=== PATIENT | female | born 1960 | race Two or more races ===

== ENCOUNTER 2024-05-23 11:54 | Inpatient (IN) | payer OTHER ==
[2024-05-23 12:07] VITALS: BMI 20.9
[2024-05-23 14:38] LABS: BASO % 1.1 % (0-2.0); EOS % 2.8 % (0-4.5); HEMATOCRIT 32.3 % (32.4-45.2); HEMOGLOBIN 11.2 GM/dL (10.7-15.3); LYMPH % 20.4 % (8-40); MCH 31.3 pg (25.7-33.7); MCHC 34.6 g/dl (32.0-36.0); MEAN CELL VOLUME 90.5 fl (80-96); MEAN PLT VOLUME 8.5 fl (7.5-11.1); MONO % 4.8 % (3.8-10.2); NEUT % 70.9 % (42.8-82.8); PLATELET COUNT 252 10^3/uL (134-434); RBC 3.57 M/mm3 (3.60-5.2); RDW 12.5 % (11.6-15.6); WHITE BLOOD COUNT 7.6 K/mm3 (4.0-10.0)
[2024-05-23 15:04] LABS: POTASSIUM 4.3 mmol/L (3.5-5.1)
[2024-05-23 15:06] LABS: ALBUMIN 3.7 g/dl (3.4-5.0); BLOOD UREA NITROGEN 25.3 mg/dL (7-18); CALCIUM 9.4 mg/dL (8.5-10.1)
[2024-05-23 15:10] LABS: CREATININE 1.1 mg/dL (0.55-1.3)
[2024-05-23 15:11] LABS: BILIRUBIN,TOTAL 0.5 mg/dL (0.2-1); TOT PROT 7.5 g/dl (6.4-8.2)
[2024-05-23 17:28] LABS: HIV INTERPRETATION NEGATIVE (NEGATIVE)
[2024-05-23] MEDS: CEFTRIAXONE 2 GM-D5W BAG 2 GM/50 ML BAG IVPB SCH (17:37)
[2024-05-23 21:24] VITALS: RESP 18
[2024-05-23] MEDS: ATORVASTATIN CA 10 MG TABLET (FP) PO SCH (23:00)
[2024-05-23] MEDS: INSULIN ASPART SLIDING SCALE (NOVOLOG) 1 VIAL SQ SCH (23:00)
[2024-05-24 08:38] LABS: CHLORIDE 104 mmol/L (98-107); POTASSIUM 4.4 mmol/L (3.5-5.1); SODIUM 138 mmol/L (136-145)
[2024-05-24 08:40] LABS: ALBUMIN 3.5 g/dl (3.4-5.0); CALCIUM 9.3 mg/dL (8.5-10.1)
[2024-05-24 08:42] LABS: ANION GAP 5 mmol/L (4-13); BASO % 0.6 % (0-2.0); BLOOD UREA NITROGEN 22.7 mg/dL (7-18); CO2 29 mmol/L (21-32); EOS % 2.3 % (0-4.5); GLUCOSE,RANDOM 145 mg/dL (74-106); HEMATOCRIT 33.3 % (32.4-45.2); HEMOGLOBIN 11.4 GM/dL (10.7-15.3); LYMPH % 18.6 % (8-40); MAGNESIUM 2.2 mg/dL (1.8-2.4); MCH 30.9 pg (25.7-33.7); MCHC 34.3 g/dl (32.0-36.0); MEAN CELL VOLUME 90.1 fl (80-96); MEAN PLT VOLUME 8.5 fl (7.5-11.1); MONO % 5.3 % (3.8-10.2); NEUT % 73.2 % (42.8-82.8); PLATELET COUNT 251 10^3/uL (134-434); RDW 12.7 % (11.6-15.6)
[2024-05-24 08:44] LABS: SGOT/AST 16 U/L (15-37); SGPT/ALT 19 U/L (13-61)
[2024-05-24 08:45] LABS: BILIRUBIN,TOTAL 0.7 mg/dL (0.2-1); PHOSPHOROUS 4.8 mg/dL (2.5-4.9); TOT PROT 7.3 g/dl (6.4-8.2)
[2024-05-24 08:47] LABS: ALK PHOS 130 U/L (45-117)
[2024-05-24] MEDS ORDERED: PATIENT'S OWN MEDICATION (NON-FORMULARY) (Lisinopril/Hydrochlorothiazide [Lisinopril-Hctz PO SCH (10:00)
[2024-05-24] MEDS: LISINOPRIL 20 MG TABLET PO SCH (10:54)
[2024-05-24] MEDS: HYDROCHLOROTHIAZIDE 12.5 MG CAPSULE (FP) PO SCH (10:54)
[2024-05-24] MEDS ORDERED: INSULIN ASPART SLIDING SCALE (NOVOLOG) 1 VIAL SQ ONE (12:14)
[2024-05-25 08:15] LABS: BASO % 0.4 % (0-2.0); EOS % 2.5 % (0-4.5); HEMATOCRIT 32.3 % (32.4-45.2); LYMPH % 18.8 % (8-40); MCH 30.8 pg (25.7-33.7); MCHC 33.9 g/dl (32.0-36.0); MEAN CELL VOLUME 90.9 fl (80-96); MEAN PLT VOLUME 8.9 fl (7.5-11.1); MONO % 4.4 % (3.8-10.2); NEUT % 73.9 % (42.8-82.8); PLATELET COUNT 239 10^3/uL (134-434); RBC 3.56 M/mm3 (3.60-5.2); RDW 12.9 % (11.6-15.6); WHITE BLOOD COUNT 7.1 K/mm3 (4.0-10.0)
[2024-05-25 08:31] LABS: POTASSIUM 4.4 mmol/L (3.5-5.1)
[2024-05-25 08:42] LABS: BLOOD UREA NITROGEN 30.4 mg/dL (7-18); CALCIUM 9.5 mg/dL (8.5-10.1)
[2024-05-25 08:44] LABS: ALBUMIN 3.4 g/dl (3.4-5.0)
[2024-05-25 08:47] LABS: BILIRUBIN,TOTAL 0.3 mg/dL (0.2-1); CREATININE 1.1 mg/dL (0.55-1.3); TOT PROT 7.2 g/dl (6.4-8.2)
[2024-05-25] MEDS: INSULIN ASPART SLIDING SCALE (NOVOLOG) 1 VIAL SQ SCH (11:24)
[2024-05-25] MEDS: EMPAGLIFLOZIN (JARDIANCE) 10 MG TABLET PO SCH (13:41)
[2024-05-25] MEDS: HEPARIN NA (PORCINE) 5,000 UNITS/ML 1ML VIAL SQ SCH (13:42)
[2024-05-25] MEDS: GLIMEPIRIDE 2 MG TABLET PO SCH (13:42)
[2024-05-26] MEDS: sitaGLIPtin PHOSPHATE 50 MG TABLET PO SCH (06:15)
[2024-05-26 09:22] VITALS: BP 121/74
[2024-05-26 09:29] LABS: PROTHROMBIN TIME (PATIENT) 11.5 SEC (9.7-13.0)
[2024-05-26] MEDS ORDERED: LIDOCAINE HCL 1%, 10 MG/ML (20ML VIAL) ONE (11:09)
[2024-05-26] MEDS: LIDOCAINE HCL 1%, 10 MG/ML (20ML VIAL) INF ONE (11:27)
[2024-05-26 13:54] VITALS: PULSE 67; TEMP 98.1
== END 2024-05-26 21:28 | disposition home or self-care (01) | DRG 344 ==
LOC: JER 11:54 → JERBED 15:19 → J6S 16:36
PROVIDERS: ADMIT Internal Medicine; ATTEND Internal Medicine
PROC: 05HY33Z Insertion of Infusion Device into Upper Vein, Percutaneous Approach (ICD-10-PCS; 2024-05-26)
PROC: 0QBQ3ZX Excision of Right Toe Phalanx, Percutaneous Approach, Diagnostic (ICD-10-PCS; principal; 2024-05-26 11:00)
DX: E11.69 Type 2 diabetes mellitus with other specified complication (principal); M86.8X7 Other osteomyelitis, ankle and foot; E11.621 Type 2 diabetes mellitus with foot ulcer; I10 Essential (primary) hypertension; E78.5 Hyperlipidemia, unspecified; L97.519 Non-pressure chronic ulcer of other part of right foot with unspecified severity
CPT/HCPCS: 36415; 36569; 80053; 82962; 83036; 83735; 84100; 85025; 85610; 85651; 86140; 86803; 86850; 86900; 86901; 87040; 87070; 87075; 87186; 87205; 87389; 93005; 93010; 93922; 93926-TC; 97597; 99285-25; A6022; J1644

== ENCOUNTER 2024-05-28 10:27 | Emergency (ER) | payer OTHER ==
[2024-05-28 10:38] VITALS: BP 138/75; PULSE 81; RESP 18; TEMP 97.9; BMI 20.9
== END 2024-05-28 11:56 | disposition home or self-care (01) ==
LOC: JER 10:27
DX: T82.838A Hemorrhage due to vascular prosthetic devices, implants and grafts, initial encounter (principal)
CPT/HCPCS: 99283-25

== ENCOUNTER 2024-05-31 11:15 | Observation (INO) | payer OTHER ==
[2024-05-31] MEDS ORDERED: CEFTRIAXONE 2 GM/100 ML BAG IVPB ONE (13:06)
[2024-05-31 13:08] LABS: BASO % 0.8 % (0-2.0); EOS % 3.6 % (0-4.5); HEMOGLOBIN 11.2 GM/dL (10.7-15.3); LYMPH % 20.5 % (8-40); MCH 31.2 pg (25.7-33.7); MEAN CELL VOLUME 89.2 fl (80-96); MEAN PLT VOLUME 8.4 fl (7.5-11.1); MONO % 5.4 % (3.8-10.2); NEUT % 69.7 % (42.8-82.8); PLATELET COUNT 247 10^3/uL (134-434); RBC 3.59 M/mm3 (3.60-5.2); RDW 12.6 % (11.6-15.6); WHITE BLOOD COUNT 7.3 K/mm3 (4.0-10.0)
[2024-05-31 13:15] LABS: INR 1.05 (0.83-1.09); PROTHROMBIN TIME (PATIENT) 11.8 SEC (9.7-13.0)
[2024-05-31] MEDS: CEFTRIAXONE 2 GM-D5W BAG 2 GM/50 ML BAG IVPB SCH (13:24)
[2024-05-31 13:29] LABS: CHLORIDE 103 mmol/L (98-107); POTASSIUM 4.8 mmol/L (3.5-5.1); SODIUM 134 mmol/L (136-145)
[2024-05-31 13:31] LABS: CALCIUM 10.1 mg/dL (8.5-10.1)
[2024-05-31 13:32] LABS: ALBUMIN 3.8 g/dl (3.4-5.0); ANION GAP 5 mmol/L (4-13); CO2 26 mmol/L (21-32); GLUCOSE,RANDOM 115 mg/dL (74-106)
[2024-05-31 13:34] LABS: SGPT/ALT 24 U/L (13-61)
[2024-05-31 13:35] LABS: CREATININE 1.1 mg/dL (0.55-1.3); SGOT/AST 17 U/L (15-37)
[2024-05-31 13:36] LABS: BILIRUBIN,TOTAL 0.4 mg/dL (0.2-1)
[2024-05-31 13:37] LABS: TOT PROT 8.2 g/dl (6.4-8.2)
[2024-05-31 13:38] LABS: ALK PHOS 116 U/L (45-117)
[2024-05-31 13:49] LABS: ERYTHROCYTE SEDIMENTATION RATE 40 mm/hr (0-30)
[2024-05-31 14:46] VITALS: BMI 20.5
[2024-05-31] MEDS: INSULIN ASPART SLIDING SCALE (NOVOLOG) 1 VIAL SQ SCH (17:10)
[2024-05-31] MEDS: metFORMIN HCL 500 MG TABLET (FP) PO SCH (17:10)
[2024-05-31] MEDS: ATORVASTATIN CA 10 MG TABLET (FP) PO SCH (22:15)
[2024-06-01] MEDS: sitaGLIPtin PHOSPHATE 50 MG TABLET PO SCH (06:55)
[2024-06-01] MEDS: GLIMEPIRIDE 2 MG TABLET PO SCH (06:55)
[2024-06-01] MEDS ORDERED: PATIENT'S OWN MEDICATION (NON-FORMULARY) (Lisinopril/Hydrochlorothiazide [Lisinopril-Hctz PO SCH (10:00)
[2024-06-01] MEDS: ENOXAPARIN NA (PORCINE) 40 MG/0.4 ML DISP.SYRIN SQ SCH (10:18)
[2024-06-01] MEDS: LISINOPRIL 20 MG TABLET PO SCH (10:18)
[2024-06-01] MEDS: HYDROCHLOROTHIAZIDE 12.5 MG CAPSULE (FP) PO SCH (10:21)
[2024-06-01 10:30] LABS: BASO % 0.9 % (0-2.0); HEMATOCRIT 34.3 % (32.4-45.2); HEMOGLOBIN 11.5 GM/dL (10.7-15.3); LYMPH % 20.4 % (8-40); MCH 30.5 pg (25.7-33.7); MCHC 33.4 g/dl (32.0-36.0); MEAN CELL VOLUME 91.3 fl (80-96); MEAN PLT VOLUME 9.1 fl (7.5-11.1); MONO % 4.8 % (3.8-10.2); NEUT % 70.9 % (42.8-82.8); PLATELET COUNT 268 10^3/uL (134-434); RBC 3.76 M/mm3 (3.60-5.2); RDW 12.4 % (11.6-15.6); WHITE BLOOD COUNT 8.7 K/mm3 (4.0-10.0)
[2024-06-01 11:36] LABS: POTASSIUM 4.8 mmol/L (3.5-5.1)
[2024-06-01 11:38] LABS: BLOOD UREA NITROGEN 36.2 mg/dL (7-18)
[2024-06-01 11:39] LABS: ALBUMIN 3.9 g/dl (3.4-5.0); CALCIUM 9.6 mg/dL (8.5-10.1)
[2024-06-01 11:41] LABS: MAGNESIUM 1.8 mg/dL (1.8-2.4)
[2024-06-01 11:42] LABS: PHOSPHOROUS 4.5 mg/dL (2.5-4.9)
[2024-06-01 11:43] LABS: BILIRUBIN,TOTAL 0.4 mg/dL (0.2-1); TOT PROT 8.2 g/dl (6.4-8.2)
[2024-06-01] MEDS: EMPAGLIFLOZIN (JARDIANCE) 10 MG TABLET PO SCH (12:05)
[2024-06-02] MEDS: ACETAMINOPHEN 325 MG TABLET (FP) PO PRN (06:54)
[2024-06-02 12:12] VITALS: RESP 14
[2024-06-02 13:57] VITALS: BP 100/58; PULSE 75; TEMP 98.4
== END 2024-06-02 16:42 | disposition home health service (06) ==
LOC: JER 11:15 → JERBED 13:42 → J7W 14:30
PROVIDERS: ADMIT Internal Medicine; ATTEND Internal Medicine
PROC: 3E03329 Introduction of Other Anti-infective into Peripheral Vein, Percutaneous Approach (ICD-10-PCS; principal; 2024-05-31)
PROC: 3E013VG Introduction of Insulin into Subcutaneous Tissue, Percutaneous Approach (ICD-10-PCS; 2024-05-31)
DX: M86.8X8 Other osteomyelitis, other site (principal); E78.00 Pure hypercholesterolemia, unspecified; E11.621 Type 2 diabetes mellitus with foot ulcer; I10 Essential (primary) hypertension
CPT/HCPCS: 36415; 80053; 82962; 83735; 84100; 85025; 85610; 85651; 86140; 86850; 86900; 86901; 87040; 96365; 96372; 99285-25; G0378

== ENCOUNTER 2024-11-16 14:45 | Inpatient (IN) | payer OTHER ==
[2024-11-16 14:52] VITALS: BMI 20.9
[2024-11-16 16:04] LABS: ABSOLUTE IMMATURE GRANULOCYTES 0.01 x10^3/uL (0.0-0.031); BASOPHILS # 0.05 x10^3/uL (0.01-0.08); EOSINOPHIL % 3.9 % (0.7-5.8); EOSINOPHILS # 0.23 x10^3/uL (0.04-0.36); HEMATOCRIT 30.2 % (34.1-44.9); HEMOGLOBIN 10.1 g/dL (11.2-15.7); MCHC 33.4 g/dl (32.2-35.5); MEAN CELL VOLUME 90.4 fl (79.4-94.8); MEAN PLT VOLUME 10.9 fl (9.4-12.3); MONOCYTE # 0.35 x10^3/uL (0.24-0.86); MONOCYTE % 5.9 % (4.7-12.5); PLATELET COUNT 217 x10^3/uL (182-369); RDW 11.6 % (12.4-16.4)
[2024-11-16 16:17] LABS: INR 1.12 (0.83-1.09); PROTHROMBIN TIME (PATIENT) 12.2 SEC (9.7-13.0)
[2024-11-16 16:19] LABS: ACTIVATED PTT 28.8 SECONDS (25.2-36.5)
[2024-11-16 16:34] LABS: CHLORIDE 105 mmol/L (98-107); POTASSIUM 4.4 mmol/L (3.5-5.1); SODIUM 138 mmol/L (136-145)
[2024-11-16 16:36] LABS: ALBUMIN 3.8 g/dl (3.4-5.0); ANION GAP 9 mmol/L (4-13); BLOOD UREA NITROGEN 17.3 mg/dL (7-18); CALCIUM 9.5 mg/dL (8.5-10.1); CO2 24 mmol/L (21-32); GLUCOSE,RANDOM 192 mg/dL (74-106)
[2024-11-16 16:39] LABS: CREATININE 0.8 mg/dL (0.55-1.3); SGOT/AST 23 U/L (15-37); SGPT/ALT 32 U/L (13-61)
[2024-11-16 16:41] LABS: BILIRUBIN,TOTAL 0.4 mg/dL (0.2-1)
[2024-11-16 16:42] LABS: ALK PHOS 141 U/L (45-117); TOT PROT 7.5 g/dl (6.4-8.2)
[2024-11-16] MEDS ORDERED: PIPERACILLIN/TAZOB 3.375 GM 3.375 GM/50 ML BAG IVPB ONE (17:36)
[2024-11-16] MEDS: PIPERACILLIN/TAZOB 3.375 GM 3.375 GM in DEXTROSE 5%-WATER - 50 ML IVPB SCH (17:42)
[2024-11-16 19:21] LABS: ERYTHROCYTE SEDIMENTATION RATE 22 mm/hr (0-30)
[2024-11-16] MEDS: ATORVASTATIN CA 10 MG TABLET (FP) PO SCH (22:18)
[2024-11-16] MEDS: HEPARIN NA (PORCINE) 5,000 UNITS/ML 1ML VIAL SQ SCH (22:18)
[2024-11-17] MEDS: INSULIN ASPART SLIDING SCALE (NOVOLOG) 1 VIAL SQ SCH (06:17)
[2024-11-17 08:39] LABS: ABSOLUTE IMMATURE GRANULOCYTES 0.01 x10^3/uL (0.0-0.031); BASOPHILS # 0.04 x10^3/uL (0.01-0.08); EOSINOPHIL % 4.1 % (0.7-5.8); HEMATOCRIT 31.1 % (34.1-44.9); HEMOGLOBIN 10.4 g/dL (11.2-15.7); MCHC 33.4 g/dl (32.2-35.5); MEAN CELL VOLUME 89.6 fl (79.4-94.8); MONOCYTE # 0.31 x10^3/uL (0.24-0.86); MONOCYTE % 6.3 % (4.7-12.5); PLATELET COUNT 226 x10^3/uL (182-369); RDW 11.6 % (12.4-16.4)
[2024-11-17 09:32] LABS: BLOOD UREA NITROGEN 15.4 mg/dL (7-18); CALCIUM 9.6 mg/dL (8.5-10.1)
[2024-11-17 09:36] LABS: CREATININE 0.9 mg/dL (0.55-1.3)
[2024-11-17] MEDS: LISINOPRIL 20 MG TABLET PO SCH (11:11)
[2024-11-18 10:22] LABS: POTASSIUM 3.9 mmol/L (3.5-5.1)
[2024-11-18 10:44] LABS: CALCIUM 9.5 mg/dL (8.5-10.1)
[2024-11-19] MEDS ORDERED: INSULIN (NOVOLOG) ASPART 100 UNITS/ML 10ML VIAL ONE (06:42)
[2024-11-19] MEDS: INSULIN GLARGINE (LANTUS) 100 UNITS/ML UNITS SQ SCH ×2 (09:13→21:53)
[2024-11-20] MEDS: ceFAZolin SODIUM 1 GM VIAL IVPB ONE
[2024-11-20 09:13] LABS: INR 1.16 (0.83-1.09); PROTHROMBIN TIME (PATIENT) 12.6 SEC (9.7-13.0)
[2024-11-20 09:25] LABS: POTASSIUM 4.2 mmol/L (3.5-5.1)
[2024-11-20 10:01] LABS: CALCIUM 9.5 mg/dL (8.5-10.1)
[2024-11-20 10:02] LABS: ALBUMIN 3.4 g/dl (3.4-5.0); BLOOD UREA NITROGEN 16.4 mg/dL (7-18)
[2024-11-20 10:05] LABS: CREATININE 0.9 mg/dL (0.55-1.3)
[2024-11-20 10:06] LABS: BILIRUBIN,TOTAL 0.4 mg/dL (0.2-1)
[2024-11-20] MEDS ORDERED: BUPIVACAINE HCL/PF 0.5% (5MG/ML) 10 ML VIAL ONE (12:15)
[2024-11-20] MEDS ORDERED: DEXAMETHASONE SOD PHOSPHATE 4 MG/1 ML VIAL ONE (12:15)
[2024-11-20] MEDS ORDERED: MIDAZOLAM HCL 2 MG/2 ML SINGLE DOSE VIAL ONE (13:11)
[2024-11-20] MEDS: LIDOCAINE HCL 1%, 10 MG/ML (50 mL VIAL) INF ONE ×2 (13:15)
[2024-11-20] MEDS: BUPIVACAINE HCL/PF 0.5% (5MG/ML) 10 ML VIAL IJ ONE ×2 (13:15)
[2024-11-20] MEDS ORDERED: ONDANSETRON 4 MG/2 ML VIAL IVPUSH PRN (13:48)
[2024-11-20] MEDS: LACTATED RINGERS SOLUTION 1,000 ML IV SCH (16:55)
[2024-11-20] MEDS: PIPERACILLIN/TAZOB 3.375 GM 50 ML IVPB SCH (18:12)
[2024-11-20] MEDS: ATORVASTATIN CA 10 MG TABLET (FP) PO SCH (21:08)
[2024-11-21 08:40] VITALS: RESP 16
[2024-11-21 08:54] LABS: HEMOGLOBIN 10.4 g/dL (11.2-15.7); MCHC 33.5 g/dl (32.2-35.5); MEAN CELL VOLUME 89.9 fl (79.4-94.8); MEAN PLT VOLUME 10.9 fl (9.4-12.3); PLATELET COUNT 236 x10^3/uL (182-369); RDW 11.7 % (12.4-16.4)
[2024-11-21 09:10] LABS: POTASSIUM 4.3 mmol/L (3.5-5.1)
[2024-11-21 09:20] LABS: CALCIUM 9.5 mg/dL (8.5-10.1)
[2024-11-21 09:21] LABS: ALBUMIN 3.3 g/dl (3.4-5.0); BLOOD UREA NITROGEN 14.2 mg/dL (7-18)
[2024-11-21 09:23] LABS: CREATININE 0.9 mg/dL (0.55-1.3)
[2024-11-21 09:25] LABS: BILIRUBIN,TOTAL 0.5 mg/dL (0.2-1); TOT PROT 6.8 g/dl (6.4-8.2)
[2024-11-21] MEDS: LISINOPRIL 20 MG TABLET PO SCH (10:11)
[2024-11-21] MEDS ORDERED: INSULIN ASPART SLIDING SCALE (NOVOLOG) 1 VIAL SQ SCH (11:24)
[2024-11-21] MEDS: INSULIN ASPART SLIDING SCALE (NOVOLOG) 1 VIAL SQ SCH (11:31)
[2024-11-21 13:43] VITALS: BP 120/70; PULSE 64; TEMP 98.4
[2024-11-21] MEDS ORDERED: INSULIN ASPART SLIDING SCALE (NOVOLOG) 1 VIAL SQ ONE (17:02)
== END 2024-11-21 18:00 | disposition home or self-care (01) | DRG 314 ==
LOC: JER 14:45 → JERBED 17:14 → J6S 18:49
PROVIDERS: ADMIT Internal Medicine; ATTEND Internal Medicine
PROC: 0Y6R0Z0 Detachment at Right 2nd Toe, Complete, Open Approach (ICD-10-PCS; principal; 2024-11-21)
DX: E11.621 Type 2 diabetes mellitus with foot ulcer (principal); L03.031 Cellulitis of right toe; E11.69 Type 2 diabetes mellitus with other specified complication; L97.508 Non-pressure chronic ulcer of other part of unspecified foot with other specified severity; M20.41 Other hammer toe(s) (acquired), right foot; M86.8X7 Other osteomyelitis, ankle and foot; I10 Essential (primary) hypertension; E78.5 Hyperlipidemia, unspecified; E11.42 Type 2 diabetes mellitus with diabetic polyneuropathy; E11.65 Type 2 diabetes mellitus with hyperglycemia
CPT/HCPCS: 36415; 73630-TC-RT-FY; 73720-TC; 80048; 80053; 82962; 83036; 85025; 85027; 85610; 85651; 85730; 86140; 86850; 86900; 86901; 87070; 87205; 88305-TC; 88311-TC; 94760; 99285-25; G0463-25